=== PATIENT | male | born 1985 | race Caucasian/White ===

== ENCOUNTER 2016-12-16 15:59 | Emergency (ER) | payer OTHER ==
[~2016-12-16 15:59] MED LIST: ALBUTEROL0.09 MG/A1 INH; ALBUTEROL0.09 MG/A2 IH; AMOXICILLIN500 M2 PO; AMOXICILLIN500 MG PO; ANAPROX DS550 MG PO; ASTHMA; AUGMENTIN 875 M1 TAB PO; BACTRIM DS 8001 TA1 PO; BACTRIM DS 8001 TAB PO; BP; BP MEDS; CLARITIN10 MG PO; CLEOCIN HCL150 MG PO; CLEOCIN HCL300 MG PO; CORDROL20 MG PO; DARVOCET N 1001 TAB PO; DAYPRO600 M1 PO; FIORICET 325 MG1 TAB PO; FLEXERIL10 MG PO; FLEXERIL5 MG PO; HYDROCODONE BIT1 T11 PO; IBU-8800 MG PO; IBU800 MG PO; INHALERS; INHALERS FOR ASTHMA; KEFLEX500 MG PO; KLONOPIN1 MG PO; KLONOPIN2 MG; KLONOPIN2 MG PO; LIDEX0.05% T; LISINOPRIL10 MG PO; LISINOPRIL5 MG PO; MIRALAX POWDER17 G1 PO; MOTRIN800 MG PO; NIZORAL 120 ML120 ML TP; NKHM PO; PCE500 M1 PO; PCE500 MG PO; PEN-VEE K500 MG PO; PEN-VK500 MG PO; PENICILLIN-VK500 MG PO; PERIDEX 480 ML480 ML PO; PHENERGAN W/ DE30 ML PO; PREDNISONE20 MG PO; PRILOSEC20 M1 PO; PRINIVIL20 M1 PO; PRINIVIL5 MG PO; PROAIR HFA0.09 MG/AC INH; PROVENTIL0.09 MG/AC IH; PYRIDIUM100 MG PO; ROBAXIN750 MG PO; SEPTRA DS 800 M1 TAB PO; SINGULAIR10 MG PO; TOBRADEX 0.1%-0.5 ML OPH; TORADOL10 MG PO; TRAMADOL HCL50 MG PO; TRIMOX500 MG PO; TYLENOL EXTRA500 M1 PO; TYLENOL W/CODEI1 TA2 PO; TYLENOL500 MG PO; ULTRAM50 MG PO; VIBRA-TAB100 MG PO; VICODIN 5/500 505 MG PO; VICODIN 500 MG-1 TAB PO; VOLTAREN75 MG PO; Vicodin 5/500 505 MG PO; WYMOX500 MG PO; ZITHROMAX Z PA250 MG PO; ZITHROMAX250 MG PO; ZYRTEC10 M3 PO; [UNRECOGNIZED DRUG - OTHER]; [UNRECOGNIZED DRUG - REMARK]
[2016-12-16] MEDS ORDERED: AMOXICILLIN500 M2 PO (16:13)
== END 2016-12-16 16:15 | disposition home or self-care (01) ==
LOC: ED 15:59
DX: K08.89 Other specified disorders of teeth and supporting structures (principal); F17.200 Nicotine dependence, unspecified, uncomplicated; F14.10 Cocaine abuse, uncomplicated; F12.10 Cannabis abuse, uncomplicated; Z90.49 Acquired absence of other specified parts of digestive tract; Z88.6 Allergy status to analgesic agent; Z91.038 Other insect allergy status

== ENCOUNTER 2017-05-16 11:40 | Emergency (ER) | payer OTHER ==
[~2017-05-16] VITALS: Ht 185.4 cm; Wt 78.0 kg
[2017-05-16] MEDS ORDERED: PRINIVIL10 MG PO (11:48)
[2017-05-16] MEDS ORDERED: CLINDAMYCIN HC300 MG PO (12:07)
[2017-05-16] MEDS ORDERED: HYDROCODONE BIT1 T11 PO (12:07)
== END 2017-05-16 12:24 | disposition home or self-care (01) ==
LOC: ED 11:40
DX: K02.9 Dental caries, unspecified (principal); K21.9 Gastro-esophageal reflux disease without esophagitis; F14.10 Cocaine abuse, uncomplicated; F12.10 Cannabis abuse, uncomplicated; F17.200 Nicotine dependence, unspecified, uncomplicated; Z91.030 Bee allergy status; Z88.6 Allergy status to analgesic agent; Z79.899 Other long term (current) drug therapy

== ENCOUNTER 2018-05-19 05:38 | Emergency (ER) | payer OTHER ==
[~2018-05-19] VITALS: Ht 182.8 cm; Wt 78.0 kg
[~2018-05-19 05:38] MED LIST changes: +CLINDAMYCIN HC300 MG PO; +PRINIVIL10 MG PO
[2018-05-19 06:38] LABS: BASO % 0.3 % (0.0-1.0); EOS # 0.1 10*3/uL (0.0-0.4); EOS % 0.5 % (1.0-4.0); HEMATOCRIT 43.2 % (42.0-52.0); HEMOGLOBIN 14.4 g/dl (14.0-18.0); LYMPH # 1.4 10*3/uL (1.3-4.4); LYMPH % 13.1 % (27.0-41.0); MEAN CELL VOLUME 89.8 fl (80.0-94.0); MEAN CORPUSCULAR HGB 29.9 pg (27.0-31.0); MEAN CORPUSCULAR HGB CONC 33.3 g/dl (33.0-37.0); MEAN PLATELET VOLUME 10.4 fl (9.6-12.3); MONO # 0.7 10*3/uL (0.1-1.0); MONO % 6.4 % (3.0-9.0); NEUT # 8.7 10*3/uL (2.3-7.9); NEUT % 79.3 % (47.0-73.0); PLATELET COUNT AUTOMATED 179 10*3/uL (130-400); RED BLOOD COUNT 4.81 10*6/uL (4.50-5.90); RED CELL DISTRI WIDTH 13.1 % (0-14.5); WHITE BLOOD COUNT 10.9 10*3/uL (4.8-10.8)
[2018-05-19 06:56] LABS: ALBUMIN 4.1 gm/dl (3.1-4.5); ALKALINE PHOSPHATASE 62 U/L (45-117); BUN 10 mg/dl (7-24); CHLORIDE 106 mmol/L (98-107); CREATININE 0.69 mg/dL (0.70-1.30); LIPASE 72 U/L (73-393); POTASSIUM 3.8 mmol/L (3.5-5.1); SGOT/AST 10 IU/L (3-35); SGPT/ALT 18 U/L (12-78); SODIUM 140 mmol/L (136-145); TOTAL PROTEIN 7.1 gm/dL (6.4-8.2)
[2018-05-19 07:17] LABS: BILIRUBIN 1+ (NEGATIVE); BLOOD NEGATIVE (NEGATIVE); CLARITY CLEAR (CLEAR); COLOR YELLOW (YELLOW); GLUCOSE NEGATIVE (NEGATIVE); KETONE 2+ (NEGATIVE); LEUKO ESTERASE NEGATIVE (NEGATIVE); NITRITE NEGATIVE (NEGATIVE); SPECIFIC GRAVITY <= 1.005 (1.005-1.030)
[2018-05-19 07:24] LABS: BACTERIA TRACE; EPITHELIAL CELLS 0-2; WBC 0-2 wbc/hpf (0-5)
[2018-07-11] MEDS ORDERED: ZOFRAN4 MG PO (13:47)
[2018-07-11] MEDS ORDERED: PENICILLIN VK500 MG PO (13:47)
[2018-07-11] MEDS ORDERED: Peridex 473 ML473 ML PO (13:47)
== END 2018-05-19 10:03 | disposition left against medical advice (07) ==
LOC: ED 05:38
PROVIDERS: Emergency Medicine
DX: K59.00 Constipation, unspecified (principal); F17.200 Nicotine dependence, unspecified, uncomplicated; F14.10 Cocaine abuse, uncomplicated; F12.10 Cannabis abuse, uncomplicated; K21.9 Gastro-esophageal reflux disease without esophagitis; Z79.899 Other long term (current) drug therapy; Z91.030 Bee allergy status; Z88.6 Allergy status to analgesic agent; Z90.49 Acquired absence of other specified parts of digestive tract

== ENCOUNTER → 2018-05-26 | Outpatient (CLI) | payer OTHER ==
[~2018-05-26] MED LIST changes: +PENICILLIN VK500 MG PO; +Peridex 473 ML473 ML PO; +ZOFRAN4 MG PO
== END | disposition home or self-care (01) ==
LOC: RAD 08:00
DX: K21.9 Gastro-esophageal reflux disease without esophagitis (principal); R63.4 Abnormal weight loss

== ENCOUNTER 2018-11-02 15:38 | Emergency (ER) | payer OTHER ==
[~2018-11-02] VITALS: Ht 182.8 cm; Wt 78.0 kg
[2018-11-02] MEDS ORDERED: AMOXICILLIN500 M2 PO ×2 (15:54→15:58)
[2018-11-02] MEDS ORDERED: TYLENOL325 M1 PO (15:54)
== END 2018-11-02 16:02 | disposition home or self-care (01) ==
LOC: ED 15:38
DX: K02.9 Dental caries, unspecified (principal); F17.200 Nicotine dependence, unspecified, uncomplicated; Z91.030 Bee allergy status; Z88.6 Allergy status to analgesic agent; Z79.899 Other long term (current) drug therapy

== ENCOUNTER 2019-11-24 14:10 | Emergency (ER) | payer OTHER ==
[~2019-11-24] VITALS: Ht 182.8 cm; Wt 79.4 kg
[~2019-11-24 14:10] MED LIST changes: +AUGMENTIN 875-875 MG PO; +TYLENOL325 M1 PO
[2019-11-24] MEDS ORDERED: PROAIR HFA8.5 GM INH (16:06)
[2019-11-24] MEDS ORDERED: AUGMENTIN 875875 MG PO (16:06)
[2019-11-24] MEDS ORDERED: FLONASE ALLERG9.9 ML NAS (16:07)
== END 2019-11-24 16:13 | disposition home or self-care (01) ==
LOC: ED 14:10
DX: J32.9 Chronic sinusitis, unspecified (principal); F17.200 Nicotine dependence, unspecified, uncomplicated; Z91.030 Bee allergy status; Z88.6 Allergy status to analgesic agent; Z88.8 Allergy status to other drugs, medicaments and biological substances; Z79.2 Long term (current) use of antibiotics; Z79.899 Other long term (current) drug therapy

== ENCOUNTER → 2020-01-06 | Outpatient (CLI) | payer OTHER ==
[~2020-01-06] MED LIST changes: +AUGMENTIN 875875 MG PO; +FLONASE ALLERG9.9 ML NAS; +PROAIR HFA8.5 GM INH
[2020-01-06 12:15] LABS: HEMATOCRIT 41.1 % (42.0-52.0); HEMOGLOBIN 13.7 g/dl (14.0-18.0); MEAN CORPUSCULAR HGB CONC 33.3 g/dl (33.0-37.0); MEAN PLATELET VOLUME 11.2 fl (9.6-12.3); RED BLOOD COUNT 4.42 10*6/uL (4.50-5.90); RED CELL DISTRI WIDTH 12.9 % (0-14.5); WHITE BLOOD COUNT 12.1 10*3/uL (4.8-10.8)
[2020-01-06 12:45] LABS: ALBUMIN 4.1 gm/dl (3.1-4.5); ALKALINE PHOSPHATASE 63 U/L (45-117); BUN 6 mg/dl (7-24); CHLORIDE 107 mmol/L (98-107); CHOLESTEROL 149 mg/dL (<200); CREATININE 0.79 mg/dL (0.70-1.30); HDL CHOLESTEROL 35 mg/dl (40-60); LDL CHOLESTEROL 101 mg/dL (9-159); POTASSIUM 3.9 mmol/L (3.5-5.1); SGOT/AST 8 IU/L (3-35); SGPT/ALT 17 U/L (12-78); SODIUM 138 mmol/L (136-145); TOTAL PROTEIN 7.4 gm/dL (6.4-8.2); TRIGLYCERIDES 64 mg/dl (<150); VLDL CHOLESTEROL 13 mg/dL (6-40)
[2020-01-07 06:08] LABS: HEPATITIS B SURFACE AG Negative (Negative); HEPATITIS C VIRUS ANTIBODY <0.1 s/co (0.0-0.9)
== END | disposition home or self-care (01) ==
LOC: LAB 11:28
PROVIDERS: Physician Assistant
DX: K21.9 Gastro-esophageal reflux disease without esophagitis (principal); F17.200 Nicotine dependence, unspecified, uncomplicated; R63.4 Abnormal weight loss

== ENCOUNTER 2020-05-07 15:30 | Emergency (ER) | payer OTHER ==
[~2020-05-07] VITALS: Ht 182.8 cm; Wt 79.8 kg
[2020-05-07 17:04] LABS: BILIRUBIN NEGATIVE (NEGATIVE); BLOOD NEGATIVE (NEGATIVE); CLARITY CLEAR (CLEAR); COLOR YELLOW (YELLOW); GLUCOSE NEGATIVE (NEGATIVE); KETONE NEGATIVE (NEGATIVE); SPECIFIC GRAVITY 1.015 (1.005-1.030)
[2020-05-07 17:05] LABS: BACTERIA TRACE; LEUKO ESTERASE NEGATIVE (NEGATIVE); NITRITE NEGATIVE (NEGATIVE); UROBILINOGEN 0.2 E.U./dl (0.2-1.0); WBC 0-2 wbc/hpf (0-5)
[2020-05-07] MEDS ORDERED: AUGMENTIN 875875 MG PO ×2 (17:06→17:34)
== END 2020-05-07 17:37 | disposition home or self-care (01) ==
LOC: ED 15:30
PROVIDERS: Nurse Practitioner Family
DX: K08.89 Other specified disorders of teeth and supporting structures (principal); R30.0 Dysuria; F41.9 Anxiety disorder, unspecified; J45.909 Unspecified asthma, uncomplicated; I10 Essential (primary) hypertension; K21.9 Gastro-esophageal reflux disease without esophagitis; Z88.8 Allergy status to other drugs, medicaments and biological substances; Z79.899 Other long term (current) drug therapy

== ENCOUNTER → 2020-10-12 | Outpatient (CLI) | payer OTHER | END | disposition home or self-care (01) | LOC: COVID19 14:08 | PROVIDERS: ATTEND Physician Assistant | DX: R69 Illness, unspecified (principal); Z20.828 Contact with and (suspected) exposure to other viral communicable diseases ==

== ENCOUNTER → 2020-11-15 | Outpatient (CLI) | payer OTHER | END | disposition home or self-care (01) | LOC: RAD 11:11 | PROVIDERS: ATTEND Nurse Practitioner Primary Care | DX: R06.02 Shortness of breath (principal); F17.200 Nicotine dependence, unspecified, uncomplicated ==

== ENCOUNTER 2021-11-10 02:11 | Emergency (ER) | payer OTHER ==
[~2021-11-10] VITALS: Ht 185.4 cm; Wt 74.8 kg
== END 2021-11-10 06:21 | disposition home or self-care (01) ==
LOC: ED 02:11
DX: S05.32XA Ocular laceration without prolapse or loss of intraocular tissue, left eye, initial encounter (principal); Y08.89XA Assault by other specified means, initial encounter; Y93.89 Activity, other specified; Y92.89 Other specified places as the place of occurrence of the external cause; Y99.8 Other external cause status

== ENCOUNTER 2022-08-09 14:04 | Emergency (ER) | payer OTHER ==
[~2022-08-09] VITALS: Ht 182.8 cm; Wt 77.1 kg
[2022-08-09] MEDS ORDERED: AMOX-CLAV 875-1 EACH PO (15:55)
== END 2022-08-09 16:02 | disposition home or self-care (01) ==
LOC: ED 14:04
DX: J18.9 Pneumonia, unspecified organism (principal); K08.89 Other specified disorders of teeth and supporting structures; Z88.8 Allergy status to other drugs, medicaments and biological substances; Z79.899 Other long term (current) drug therapy; Z90.49 Acquired absence of other specified parts of digestive tract; Z87.891 Personal history of nicotine dependence

== ENCOUNTER 2022-08-31 13:55 | Emergency (ER) | payer OTHER ==
[~2022-08-31] VITALS: Ht 185.4 cm; Wt 77.1 kg
[~2022-08-31 13:55] MED LIST changes: +AMOX-CLAV 875-1 EACH PO
[2022-08-31 14:56] LABS: HEMATOCRIT 43.3 % (42.0-52.0); MEAN CELL VOLUME 94.5 fl (80.0-94.0); MEAN CORPUSCULAR HGB 32.3 pg (27.0-31.0); MEAN CORPUSCULAR HGB CONC 34.2 g/dl (33.0-37.0); MEAN PLATELET VOLUME 10.6 fl (9.6-12.3); NUCLEATED RED BLOOD CELL 0.9 % (0.0-0.0); PLATELET COUNT AUTOMATED 105 10*3/uL (130-400); RED BLOOD COUNT 4.58 10*6/uL (4.50-5.90); RED CELL DISTRI WIDTH 14.9 % (0-14.5); WHITE BLOOD COUNT 3.4 10*3/uL (4.8-10.8)
[2022-08-31 15:09] LABS: ALKALINE PHOSPHATASE 202 U/L (45-117); BUN 19 mg/dl (7-24); CHLORIDE 98 mmol/L (98-107); CREATININE 1.02 mg/dL (0.70-1.30); POTASSIUM 2.5 mmol/L (3.5-5.1); SGOT/AST 78 IU/L (3-35); SGPT/ALT 250 U/L (12-78); SODIUM 139 mmol/L (136-145); TOTAL PROTEIN 5.4 gm/dL (6.4-8.2)
[2022-08-31 15:16] LABS: ETHYL ALCOHOL < 3.0 mg/dl (<3)
[2022-08-31 15:17] LABS: MANUAL DIFF REFLEX YES
[2022-08-31 15:29] LABS: TOTAL CELLS COUNTED 100 #CELLS; TOXIC GRANULATION MODERATE
[2022-08-31 15:30] LABS: OVALOCYTES FEW; PLATELET SUFFICIENCY LOW (NORMAL)
[2022-08-31 15:31] LABS: BLOOD Negative (Negative); CLARITY Clear (Clear); COLOR Orange (Yellow); GLUCOSE Negative (Negative); KETONE Negative (Negative); LEUKO ESTERASE 1+ (Negative); NITRITE Positive (Negative); PH 5.5 (4.5-8.0); SPECIFIC GRAVITY 1.025 (1.001-1.030)
[2022-08-31 15:42] LABS: URINE AMPHETAMINES < 1000 (1000ng/ml); URINE BARBITURATES < 200 (200ng/ml); URINE BENZODIAZEPINES > 200 (200ng/ml); URINE CANNABINOIDS (THC) > 50 (50ng/ml); URINE COCAINE < 300 (300ng/ml); URINE METHADONE < 300 (300ng/ml); URINE OPIATES < 300 (300ng/ml)
[2022-08-31 15:44] LABS: BILIRUBIN 1+ (Negative)
[2022-08-31 15:45] LABS: BACTERIA 1+; HYALINE CAST 0-2
[2022-08-31 15:47] LABS: URINE PHENCYCLIDINE < 25 (25ng/ml)
[2022-08-31 20:53] LABS: ABG BASE EXCESS 7.9 mmol/L (-2.0-2.0); ARTERIAL BLOOD GAS PH 7.547 (7.35-7.45); ARTERIAL BLOOD GAS PO2 47.9 (80-90)
[2022-08-31 21:25] LABS: INTERNATIONAL NORM RATIO 1.4 (2.0-3.5)
== END 2022-09-01 00:36 ==
LOC: ED 13:55
PROVIDERS: Emergency Medicine; Student in an Organized Health Care Education/Training Program
DX: A41.9 Sepsis, unspecified organism (principal); J18.9 Pneumonia, unspecified organism; N39.0 Urinary tract infection, site not specified; R65.20 Severe sepsis without septic shock; I46.9 Cardiac arrest, cause unspecified; F10.920 Alcohol use, unspecified with intoxication, uncomplicated; E80.6 Other disorders of bilirubin metabolism; E87.6 Hypokalemia; J96.01 Acute respiratory failure with hypoxia; R74.01 Elevation of levels of liver transaminase levels; F17.200 Nicotine dependence, unspecified, uncomplicated; Z88.6 Allergy status to analgesic agent; Z79.899 Other long term (current) drug therapy; Z90.49 Acquired absence of other specified parts of digestive tract; Y90.9 Presence of alcohol in blood, level not specified